=== PATIENT | female | born 1990 | race Two or more races ===

== ENCOUNTER 2016-12-09 12:45 | Inpatient (IN) | payer SELFPAY ==
[2016-12-09] VITALS (12 sets, daily range): BP systolic 87–100; BP diastolic 50–77
[~2016-12-09] VITALS: Ht 157.5 cm; Wt 55.3 kg
[~2016-12-09 12:45] MED LIST: IBUP-1060 PO
[2016-12-09 12:58] LABS: POTASSIUM ISTAT 4.2 mmol/L (3.5-5.0)
[2016-12-09 12:59] LABS: BASO # 0.1 x10^3/uL (0.0-0.2); BASO % 0 % (0-3); EOS % 0 % (0-3); HEMATOCRIT 28.1 % (36.0-47.0); HEMOGLOBIN 9.2 g/dL (12.0-15.5); LYMPH # 2.1 x10^3/uL (1.0-4.8); LYMPH % 11 % (24-48); MEAN CORPUSCULAR HEMOGLOBIN 29 pg (25-35); MEAN CORPUSCULAR HGB CONC 33 g/dL (31-37); MEAN CORPUSCULAR VOLUME 89 fL (79-100); MONO % 3 % (0-9); NEUT % 85 % (31-73); PLATELET COUNT 177 x10^3/uL (140-400); RED BLOOD COUNT 3.16 x10^6/uL (3.50-5.40); RED CELL DISTRIBUTION WIDTH 15.7 % (11.5-14.5); WHITE BLOOD COUNT 18.5 x10^3/uL (4.0-11.0)
[2016-12-09] MEDS ORDERED: IV NORMAL SALINE 1000ML BAG 1,000 ML IV ONE (13:00)
--- NOTE | 2016-12-09 13:03 | PHYS DOC ---
Adult General Chief Complaint Chief Complaint: VAGINAL BLEEDING HPI HPI Patient is a 26 year old female who presents with lightheadedness dizziness, abdominal pain with vaginal bleeding. She states she is having vaginal bleeding this morning and passed "something large out of her vagina" when using the bathroom. She presents to ER via her vehicle and had a near syncopal episode and was pale. She is alert and interactive at this time. She complains of abdominal pain that's severe in nature. She states she's had a history in the past of sexual transmitted infection. She is partially 13 months. Eyes any past surgical or allergies any medicines. States she feels lightheaded and has some shortness of breath. Review of Systems Review of Systems Constitutional: Denies fever or chills [] Eyes: Denies change in visual acuity, redness, or eye pain [] HENT: Denies nasal congestion or sore throat [] Respiratory: Denies cough or shortness of breath [] Cardiovascular: No additional information not addressed in HPI [] GI: Positive for abdominal pain, Deniesnausea, vomiting, bloody stools or diarrhea [] : Denies dysuria or hematuria [] Musculoskeletal: Denies back pain or joint pain [] Integument: Denies rash or skin lesions [] Neurologic: Denies headache, focal weakness or sensory changes [] Endocrine: Denies polyuria or polydipsia [] Current Medications Current Medications Current Medications Medications (Trade) Dose Ordered Sig/[facility] Start Time Stop Time Status Last Admin Dose Admin Sodium Chloride 1,000 ml @ 1,000 mls/hr 1X ONCE 12/09/16 13:00 12/09/16 13:59 DC 12/09/16 12:45 1,000 MLS/HR Allergies Allergies Physical Exam Physical Exam Constitutional: Well developed, well nourished, no acute distress, non-toxic appearance. [] HENT: Normocephalic, atraumatic, bilateral external ears normal, oropharynx moist, no oral exudates, nose normal. [] Eyes: PERRLA, EOMI, conjunctiva normal, no discharge. [] Neck: Normal range of motion, no tenderness, supple, no stridor. [] Cardiovascular:Heart rate regular rhythm, no murmur [] Lungs & Thorax: Bilateral breath sounds clear to auscultation [] Abdomen/ pelvic exam: Bowel sounds normal, soft, tender to palpation over the suprapubic area, no masses, no pulsatile masses. Large quantity of blood in the vault. Skin: Warm, dry, no erythema, no rash. [] Back: No tenderness, no CVA tenderness. [] Extremities: No tenderness, no cyanosis, no clubbing, ROM intact, no edema. [] Neurologic: Alert and oriented X 3, normal motor function, normal sensory function, no focal deficits noted. [] Psychologic: Affect normal, judgement normal, mood normal. [] Current Patient Data Vital Signs Vital Signs Date Time Temp Pulse Resp B/P (MAP) Pulse Ox O2 Delivery O2 Flow Rate FiO2 12/09/16 13:27 106 85/62 (70) 100 12/09/16 12:55 Room Air 12/09/16 12:45 98.3 16 98.3 Lab Values Laboratory Tests Test 12/09/16 12:45 12/09/16 12:47 12/09/16 12:52 12/09/16 12:55 White Blood Count 18.5 x10^3/uL (4.0-11.0) H Red Blood Count 3.16 x10^6/uL (3.50-5.40) L Hemoglobin 9.2 g/dL (12.0-15.5) L Hematocrit 28.1 % (36.0-47.0) L Mean Corpuscular Volume 89 fL (79-100) Mean Corpuscular Hemoglobin 29 pg (25-35) Mean Corpuscular Hemoglobin Concent 33 g/dL (31-37) Red Cell Distribution Width 15.7 % (11.5-14.5) H Platelet Count 177 x10^3/uL (140-400) Neutrophils (%) (Auto) 85 % (31-73) H Lymphocytes (%) (Auto) 11 % (24-48) L Monocytes (%) (Auto) 3 % (0-9) Eosinophils (%) (Auto) 0 % (0-3) Basophils (%) (Auto) 0 % (0-3) Neutrophils # (Auto) 15.7 x10^3uL (1.8-7.7) H Lymphocytes # (Auto) 2.1 x10^3/uL (1.0-4.8) Monocytes # (Auto) 0.6 x10^3/uL (0.0-1.1) Eosinophils # (Auto) 0.0 x10^3/uL (0.0-0.7) Basophils # (Auto) 0.1 x10^3/uL (0.0-0.2) Segmented Neutrophils % 88 % (35-66) H Lymphocytes % 10 % (24-48) L Monocytes % 2 % (0-10) Platelet Estimate Adequate (ADEQUATE) Hypochromasia Slight Sodium Level 136 mmol/L (136-145) Potassium Level 3.4 mmol/L (3.5-5.1) L Chloride Level 102 mmol/L (98-107) Carbon Dioxide Level 22 mmol/L (21-32) Anion Gap 12 (6-14) 19 mmol/L (6-14) H Blood Urea Nitrogen 14 mg/dL (7-20) Creatinine 0.8 mg/dL (0.6-1.0) Estimated GFR (Cockcroft-Gault) 87.4 BUN/Creatinine Ratio 18 (6-20) Glucose Level 142 mg/dL (70-99) H 134 mg/dL (70-99) H Lactic Acid Level 2.3 mmol/L (0.4-2.0) H Calcium Level 8.2 mg/dL (8.5-10.1) L Total Bilirubin 0.3 mg/dL (0.2-1.0) Aspartate Amino Transferase (AST) 15 U/L (15-37) Alanine Aminotransferase (ALT) 16 U/L (14-59) Alkaline Phosphatase 51 U/L (46-116) Total Protein 6.2 g/dL (6.4-8.2) L Albumin 2.6 g/dL (3.4-5.0) L Albumin/Globulin Ratio 0.7 (1.0-1.7) L Urine Collection Type U cath Urine Color Sapna Urine Clarity Cloudy Urine pH 5.5 Urine Specific [place] >=1.030 Urine Protein 30 mg/dL (NEG-TRACE) Urine Glucose (UA) Negative mg/dL (NEG) Urine Ketones (Stick) 15 mg/dL (NEG) Urine Blood Negative (NEG) Urine Nitrite Negative (NEG) Urine Bilirubin Negative (NEG) Urine Urobilinogen Dipstick 0.2 mg/dL (0.2 mg/dL) Urine Leukocyte Esterase Negative (NEG) Urine RBC 1-2 /HPF (0-2) Urine WBC 1-4 /HPF (0-4) Urine Squamous Epithelial Cells Few /LPF Urine Bacteria Few /HPF (0-FEW) Urine Hyaline Casts Few /HPF Urine Mucus Mod /LPF POC Urine HCG, Qualitative Hcg positive (Negative) POC Hemoglobin 9.2 g/dL (12-15) L POC Hematocrit 27 % (36-40) L POC Sodium 136 mmol/L (135-145) POC Potassium 4.2 mmol/L (3.5-5.0) POC Chloride 102 mmol/L (98-110) POC Total CO2 20 mmol/L (23-32) L POC Blood Urea Nitrogen 16 mg/dL (8-26) POC Creatinine 0.6 mg/dL (0.5-1.4) POC Ionized Calcium (Alcira) 1.15 mmol/L (1.13-1.32) Laboratory Tests 12/09/16 12:45 Laboratory Tests 12/09/16 12:45 12/09/16 12:55 EKG EKG [] Radiology/Procedures Radiology/Procedures [facility] [address] [place] [address] IMAGING REPORT Signed PATIENT: MARTIN SALINAS ACCOUNT: [id number] : 1990 LOCATION: ER AGE: 26 SEX: F EXAM STATUS: REG ER ORD. PHYSICIAN: LASHAWN ISRAEL MD REASON: vaginal bleeding with pain PROCEDURE: PELVIS COMPLETE Pelvic ultrasound, 12/09/2016: History: Positive test, bleeding passing material The uterus measures 18 x 9 x 7 cm. There is heterogeneous thickening of the central uterine echo complex which in the sagittal plane measures 4.8 cm in AP dimension. No definite color flow is seen within this material in the central uterine cavity. No intrauterine gestational sac or fetus is evident. The central uterine contents extend into the lower uterine segment and probably the cervical canal. The ovaries were not visualized. No adnexal mass is seen. No free fluid is evident in the pelvis. IMPRESSION: Uterine enlargement with a large amount of complex material in the central uterine cavity compatible with blood products and/or retained products of conception. Gestational peripheral blastic disease is less likely. DICTATED and SIGNED BY: PATY DELANEY MD DATE: 12/09/16 1344 CC: LASHAWN ISRAEL MD; NO PCP ~ Impressions: Vaginal bleeding Course & Med Decision Making Course & Med Decision Making Pertinent Labs and Imaging studies reviewed. (See chart for details) She arrived pale and decreased responsiveness. She is bleeding vaginally and was hypotensive and tachycardic. She was fluid resuscitated with 1 L of normal saline. She was typed and screened and one unit of blood has been ordered to be given. Spoke with Dr. Villegas regarding patient's vitals and physical exam findings. Ultrasound was performed and I was told by the tech that she has a large uterus is likely has a placenta or other products in it. I spoke with Dr. Rhodes again and told him about these findings and her vitals. Interim orders have been written and she is ready to be transferred to the OR. One unit of blood has been ordered for her. Critical care time: 45 minutes of critical care time was used on this patient excluding procedures. Dragon Disclaimer Dragon Disclaimer This electronic medical record was generated, in whole or in part, using a voice recognition dictation system. Departure Departure Impression: Primary Impression: Vagina bleeding Disposition: ADMITTED INPATIENT Admitting Physician: Other Condition: STABLE Referrals: NO PCP (PCP) LASHAWN ISRAEL MD Dec 09, 2016 13:03
[2016-12-09 13:08] LABS: BILIRUBIN,URINE NEGATIVE (NEG); GLUCOSE,URINE NEGATIVE (NEG); NITRITE,URINE NEGATIVE (NEG); PH,URINE 5.5; PROTEIN,URINE 30 mg/dL (NEG-TRACE); UROBILINOGEN,URINE 0.2 mg/dL (0.2 mg/dL)
[2016-12-09 13:16] LABS: CALCIUM 8.2 mg/dL (8.5-10.1); CREATININE 0.8 mg/dL (0.6-1.0); GFR 87.4; POTASSIUM 3.4 mmol/L (3.5-5.1)
[2016-12-09 13:20] LABS: BACTERIA,URINE FEW /HPF (0-FEW)
[2016-12-09 13:21] LABS: SQUAMOUS EPITHELIAL CELL,UR FEW /LPF
[2016-12-09 13:24] LABS: ALBUMIN 2.6 g/dL (3.4-5.0); ALBUMIN/GLOBULIN RATIO 0.7 (1.0-1.7); TOTAL BILIRUBIN 0.3 mg/dL (0.2-1.0); TOTAL PROTEIN 6.2 g/dL (6.4-8.2)
[2016-12-09] MEDS ORDERED: OXYTOCIN 10 UNIT/ML VIAL. ONE ×2 (13:50→14:40)
[2016-12-09] MEDS ORDERED: LIDOCAINE 2% PF Vial for OR 5 ML VIAL. ONE (13:55)
[2016-12-09] MEDS ORDERED: SUCCINYLCHOLINE 200 MG/10 ML VIAL. ONE (13:55)
[2016-12-09] MEDS ORDERED: DEXAMETHASONE SOD PHOS 20 MG/5 ML VIAL. ONE (13:55)
[2016-12-09] MEDS ORDERED: fentaNYL PF VIAL 100 MCG/2 ML VIAL ONE (13:55)
[2016-12-09] MEDS ORDERED: ONDANSETRON PF 4 MG/2 ML VIAL. ONE (13:55)
[2016-12-09] MEDS ORDERED: PROPOFOL 20 ML IV ONE (13:55)
--- NOTE | 2016-12-09 13:55 | RAD ---
Pelvic ultrasound, 12/09/2016: History: Positive test, bleeding passing material The uterus measures 18 x 9 x 7 cm. There is heterogeneous thickening of the central uterine echo complex which in the sagittal plane measures 4.8 cm in AP dimension. No definite color flow is seen within this material in the central uterine cavity. No intrauterine gestational sac or fetus is evident. The central uterine contents extend into the lower uterine segment and probably the cervical canal. The ovaries were not visualized. No adnexal mass is seen. No free fluid is evident in the pelvis. IMPRESSION: Uterine enlargement with a large amount of complex material in the central uterine cavity compatible with blood products and/or retained products of conception. Gestational peripheral blastic disease is less likely.
[2016-12-09] MEDS ORDERED: VASOPRESSIN 20 UNIT/ML VIAL. ONE (13:56)
[2016-12-09] MEDS ORDERED: IV RINGERS,LACTATED 1000ML 1,000 ML IV SCH (14:02)
[2016-12-09] MEDS ORDERED: MIDAZOLAM HCL/PF 2 MG/2 ML VIAL. ONE (14:02)
[2016-12-09] MEDS ORDERED: fentaNYL PF VIAL 100 MCG/2 ML VIAL IV PRN ×2 (14:15)
[2016-12-09] MEDS ORDERED: LIDOCAINE 1% 1 ML SYRINGE. ID PRN (14:15)
[2016-12-09] MEDS ORDERED: ONDANSETRON PF 4 MG/2 ML VIAL. IV PRN ×2 (14:15→15:15)
[2016-12-09] MEDS ORDERED: MORPHINE SULFATE 2 MG/ML DISP.SYRIN. IV PRN (14:15)
[2016-12-09] MEDS ORDERED: HYDROmorphone 2 MG/ML VIAL IV PRN (14:15)
[2016-12-09] MEDS ORDERED: PROCHLORPERAZINE 10 MG/2 ML VIAL. IV PRN ×2 (14:15→15:15)
[2016-12-09 14:33] LABS: PLT ESTIMATE ADEQUATE (ADEQUATE)
[2016-12-09 14:34] LABS: HYPOCHROMIA SLIGHT
[2016-12-09] MEDS ORDERED: PHENYLEPHRINE in 0.9% NACL PF 1 MG/10 ML DISP.SYRIN. IV ONE (14:40)
[2016-12-09] MEDS: GABAPENTIN 300 MG CAPSULE. PO SCH ×2 (15:00→22:00)
[2016-12-09] MEDS: DOXYCYCLINE HYCLATE 100 MG TABLET PO SCH (15:00)
--- NOTE | 2016-12-09 15:01 | PDOC ---
BRIEF OPERATIVE NOTE Pre-Op Diagnosis Incomplete SAB Post-Op Diagnosis Same Procedure Performed Suction D&C Surgeon Dr. Villegas Anesthesia Type: General Blood Loss 300 ml Specimens Obtained placenta and blood products Findings placenta 16 wks size; no parts Complications none ROBERTO VILLEGAS Jr, MD Dec 09, 2016 15:01
[2016-12-09] MEDS ORDERED: SEVOFLURANE 31 TO 60 MINUTES. IH ONE (15:07)
[2016-12-09] MEDS ORDERED: SEVOFLURANE 61 TO 120 MINUTES. IH ONE (15:07)
[2016-12-09] MEDS ORDERED: diphenhydrAMINE HCL 25 MG CAPSULE PO PRN (15:15)
[2016-12-09] MEDS ORDERED: CALCIUM CARBONATE 500 MG TAB.CHEW PO PRN (15:15)
[2016-12-09] MEDS ORDERED: DEXTROSE 50% 25 GM / 50ML DISP.SYRIN. IV PRN (15:15)
[2016-12-09] MEDS ORDERED: oxyCODONE/APAP 5/325 1 TAB TABLET PO PRN (15:15)
[2016-12-09] MEDS ORDERED: 0.9 % SODIUM CHLORIDE 10 ML DISP.SYRIN. IV PRN (15:15)
[2016-12-09] MEDS ORDERED: ZOLPIDEM 5 MG TABLET. PO PRN (15:15)
[2016-12-09] MEDS ORDERED: KETOROLAC 30 MG/ML INJ. IV PRN (15:15)
[2016-12-09] MEDS ORDERED: diphenhydrAMINE 50 MG/ML VIAL IV PRN (15:15)
[2016-12-09] MEDS ORDERED: SIMETHICONE 80 MG TAB.CHEW PO PRN (15:15)
--- NOTE | 2016-12-09 15:40 | OP ---
DATE OF SURGERY: PREOPERATIVE DIAGNOSIS: Incomplete spontaneous . POSTOPERATIVE DIAGNOSIS: Incomplete spontaneous . PROCEDURE: Suction D and C. SURGEON: Roberto Villegas MD ANESTHESIA: GETA. ESTIMATED BLOOD LOSS: 300 mL. COMPLICATIONS: None. FINDINGS: Placenta was about 16 weeks' size with no parts. COMPLICATIONS: None. SUMMARY: A 26-year-old 2, para 1 at about 12 weeks by LMP, who presented with active vaginal bleeding. She reported vaginal bleeding starting at 6:00 this morning as well as passing some tissue at home. The patient was evaluated in the emergency department and found to be hypotensive with active vaginal bleeding requiring a suction D and C emergently. The patient was counseled on risks, benefits, and expectations via the tone evaporator helper and voiced a clear understanding to proceed. DESCRIPTION OF PROCEDURE: The patient was taken to surgery suite and placed in dorsal lithotomy position, was prepped with Betadine solution and draped in sterile fashion. After adequate anesthesia, weighted speculum and curved [place] placed vaginally and anterior lip of the cervix was grasped with a single tooth tenaculum. There were partial placental pieces at the level of the cervix, which were removed, and all of blood clot by ring forceps. Placenta fragments equivalated to almost size 16-week . There were no parts palpated or extracted. A 12 curved tip suction curette was then performed using 60 inches of mercury for pressure. This was rotated circumferentially removing further products of conception as well as blood clot and debris. Sharp curettage took place until a fine gritty surface was palpated circumferentially. Suction curette was passed once again removing additional blood. The uterus was palpated firm. Due to some bleeding on the cervix from the single tooth tenaculum for retraction purposes, 2-0 Vicryl suture was placed in a [id number] manner on the anterior lip of the cervix for better hemostasis. A weighted speculum and curved [place] were removed. The patient tolerated the procedure well and was taken to recovery room in stable condition. Sponge and needle count correct x 3. ROBERTO VILLEGAS MD DR: CAITLIN/fabricio JOB#: [id number] / [id number]
[2016-12-09 15:41] LABS: HEMATOCRIT 19.5 % (36.0-47.0); HEMOGLOBIN 6.5 g/dL (12.0-15.5)
--- NOTE | 2016-12-09 15:53 | EKG ---
[facility] [address] [place] [address] Test Date: 2016-12-09 Test Time: 12:43:14 Pat Name: MARTIN SALINAS Department: Room: 343 Gender: F Global Engineering Manager: : 1990 Requested By: ROBERTO DEL VALLE Order Number: [id number] Reading MD: Measurements Intervals [place] Rate: 121 P: 66 HI: 122 QRS: 72 QRSD: 62 T: 44 QT: 318 QTc: 454 Interpretive Statements SINUS TACHYCARDIA LEFT ATRIAL ABNORMALITY QRS(T) CONTOUR ABNORMALITY CONSIDER ANTEROLATERAL MYOCARDIAL DAMAGE RI6.01 Unconfirmed report No previous ECG available for comparison
[2016-12-10 01:50] VITALS: BP 90/53
[2016-12-10] MEDS: DOXYCYCLINE HYCLATE 100 MG TABLET PO SCH ×2 (02:43→13:31)
[2016-12-10] MEDS ORDERED: IV RINGERS,LACTATED 1000ML 1,000 ML IV SCH (03:45)
[2016-12-10 03:52] LABS: BASO % 0 % (0-3); EOS % 0 % (0-3); HEMATOCRIT 23.8 % (36.0-47.0); HEMOGLOBIN 8.2 g/dL (12.0-15.5); LYMPH # 1.5 x10^3/uL (1.0-4.8); LYMPH % 14 % (24-48); MEAN CORPUSCULAR HEMOGLOBIN 30 pg (25-35); MEAN CORPUSCULAR HGB CONC 34 g/dL (31-37); MEAN CORPUSCULAR VOLUME 87 fL (79-100); MONO % 5 % (0-9); NEUT % 80 % (31-73); PLATELET COUNT 85 x10^3/uL (140-400); RED BLOOD COUNT 2.73 x10^6/uL (3.50-5.40); RED CELL DISTRIBUTION WIDTH 15.6 % (11.5-14.5); WHITE BLOOD COUNT 10.9 x10^3/uL (4.0-11.0)
[2016-12-10] MEDS: GABAPENTIN 300 MG CAPSULE. PO SCH ×2 (06:00→13:31)
[2016-12-10 06:10] VITALS: BP 86/49
[2016-12-10 06:11] VITALS: BP 77/41
[2016-12-10 06:12] VITALS: BP 86/52
[2016-12-10] MEDS ORDERED: FERROUS SULFATE 325 MG TABLET. PO SCH (08:00)
[2016-12-10 14:38] VITALS: BP 94/62
--- NOTE | 2016-12-10 16:16 | PDOC ---
SURGICAL PROGRESS NOTE Subjective Pt. feeling well. No further vaginal bleeding. Vital Signs Vital Signs Date Time Temp Pulse Resp B/P (MAP) Pulse Ox O2 Delivery O2 Flow Rate FiO2 12/10/16 14:38 98.1 88 18 94/62 (73) 97 10.0 98.1 12/10/16 06:10 Room Air I&O Intake and Output 12/11/16 07:00 Intake Total 210 ml Balance 210 ml Intake Oral 210 ml # Voids 2 General: Alert, Oriented X3, Cooperative HEENT: Atraumatic Lungs: Clear to auscultation Heart: Regular rate Abdomen: Normal bowel sounds, Soft, No tenderness, No masses Psych/Mental Status: Mental status NL Labs Laboratory Tests Test 12/09/16 12:45 12/09/16 12:47 12/09/16 12:52 12/09/16 12:55 White Blood Count 18.5 x10^3/uL (4.0-11.0) Red Blood Count 3.16 x10^6/uL (3.50-5.40) Hemoglobin 9.2 g/dL (12.0-15.5) Hematocrit 28.1 % (36.0-47.0) Mean Corpuscular Volume 89 fL (79-100) Mean Corpuscular Hemoglobin 29 pg (25-35) Mean Corpuscular Hemoglobin Concent 33 g/dL (31-37) Red Cell Distribution Width 15.7 % (11.5-14.5) Platelet Count 177 x10^3/uL (140-400) Neutrophils (%) (Auto) 85 % (31-73) Lymphocytes (%) (Auto) 11 % (24-48) Monocytes (%) (Auto) 3 % (0-9) Eosinophils (%) (Auto) 0 % (0-3) Basophils (%) (Auto) 0 % (0-3) Neutrophils # (Auto) 15.7 x10^3uL (1.8-7.7) Lymphocytes # (Auto) 2.1 x10^3/uL (1.0-4.8) Monocytes # (Auto) 0.6 x10^3/uL (0.0-1.1) Eosinophils # (Auto) 0.0 x10^3/uL (0.0-0.7) Basophils # (Auto) 0.1 x10^3/uL (0.0-0.2) Segmented Neutrophils % 88 % (35-66) Lymphocytes % 10 % (24-48) Monocytes % 2 % (0-10) Platelet Estimate Adequate (ADEQUATE) Hypochromasia Slight Sodium Level 136 mmol/L (136-145) Potassium Level 3.4 mmol/L (3.5-5.1) Chloride Level 102 mmol/L (98-107) Carbon Dioxide Level 22 mmol/L (21-32) Anion Gap 12 (6-14) 19 mmol/L (6-14) Blood Urea Nitrogen 14 mg/dL (7-20) Creatinine 0.8 mg/dL (0.6-1.0) Estimated GFR (Cockcroft-Gault) 87.4 BUN/Creatinine Ratio 18 (6-20) Glucose Level 142 mg/dL (70-99) 134 mg/dL (70-99) Lactic Acid Level 2.3 mmol/L (0.4-2.0) Calcium Level 8.2 mg/dL (8.5-10.1) Total Bilirubin 0.3 mg/dL (0.2-1.0) Aspartate Amino Transf (AST/SGOT) 15 U/L (15-37) Alanine Aminotransferase (ALT/SGPT) 16 U/L (14-59) Alkaline Phosphatase 51 U/L (46-116) Total Protein 6.2 g/dL (6.4-8.2) Albumin 2.6 g/dL (3.4-5.0) Albumin/Globulin Ratio 0.7 (1.0-1.7) Urine Collection Type U cath Urine Color Sapna Urine Clarity Cloudy Urine pH 5.5 Urine Specific [place] >=1.030 Urine Protein 30 mg/dL (NEG-TRACE) Urine Glucose (UA) Negative mg/dL (NEG) Urine Ketones (Stick) 15 mg/dL (NEG) Urine Blood Negative (NEG) Urine Nitrite Negative (NEG) Urine Bilirubin Negative (NEG) Urine Urobilinogen Dipstick 0.2 mg/dL (0.2 mg/dL) Urine Leukocyte Esterase Negative (NEG) Urine RBC 1-2 /HPF (0-2) Urine WBC 1-4 /HPF (0-4) Urine Squamous Epithelial Cells Few /LPF Urine Bacteria Few /HPF (0-FEW) Urine Hyaline Casts Few /HPF Urine Mucus Mod /LPF Bedside Urine HCG, Qualitative Hcg positive (Negative) Bedside Hemoglobin 9.2 g/dL (12-15) Bedside Hematocrit 27 % (36-40) Bedside Sodium 136 mmol/L (135-145) Bedside Potassium 4.2 mmol/L (3.5-5.0) Bedside Chloride 102 mmol/L (98-110) Bedside Total CO2 20 mmol/L (23-32) Bedside Blood Urea Nitrogen 16 mg/dL (8-26) Bedside Creatinine 0.6 mg/dL (0.5-1.4) Bedside Ionized Calcium (Alcira) 1.15 mmol/L (1.13-1.32) Test 12/09/16 15:30 12/10/16 03:45 Hemoglobin 6.5 g/dL (12.0-15.5) 8.2 g/dL (12.0-15.5) Hematocrit 19.5 % (36.0-47.0) 23.8 % (36.0-47.0) Mean Corpuscular Hemoglobin Concent 34 g/dL (31-37) 34 g/dL (31-37) White Blood Count 10.9 x10^3/uL (4.0-11.0) Red Blood Count 2.73 x10^6/uL (3.50-5.40) Mean Corpuscular Volume 87 fL (79-100) Mean Corpuscular Hemoglobin 30 pg (25-35) Red Cell Distribution Width 15.6 % (11.5-14.5) Platelet Count 85 x10^3/uL (140-400) Neutrophils (%) (Auto) 80 % (31-73) Lymphocytes (%) (Auto) 14 % (24-48) Monocytes (%) (Auto) 5 % (0-9) Eosinophils (%) (Auto) 0 % (0-3) Basophils (%) (Auto) 0 % (0-3) Neutrophils # (Auto) 8.7 x10^3uL (1.8-7.7) Lymphocytes # (Auto) 1.5 x10^3/uL (1.0-4.8) Monocytes # (Auto) 0.6 x10^3/uL (0.0-1.1) Eosinophils # (Auto) 0.0 x10^3/uL (0.0-0.7) Basophils # (Auto) 0.0 x10^3/uL (0.0-0.2) Laboratory Tests Test 12/10/16 03:45 White Blood Count 10.9 x10^3/uL (4.0-11.0) Red Blood Count 2.73 x10^6/uL (3.50-5.40) Hemoglobin 8.2 g/dL (12.0-15.5) Hematocrit 23.8 % (36.0-47.0) Mean Corpuscular Volume 87 fL (79-100) Mean Corpuscular Hemoglobin 30 pg (25-35) Mean Corpuscular Hemoglobin Concent 34 g/dL (31-37) Red Cell Distribution Width 15.6 % (11.5-14.5) Platelet Count 85 x10^3/uL (140-400) Neutrophils (%) (Auto) 80 % (31-73) Lymphocytes (%) (Auto) 14 % (24-48) Monocytes (%) (Auto) 5 % (0-9) Eosinophils (%) (Auto) 0 % (0-3) Basophils (%) (Auto) 0 % (0-3) Neutrophils # (Auto) 8.7 x10^3uL (1.8-7.7) Lymphocytes # (Auto) 1.5 x10^3/uL (1.0-4.8) Monocytes # (Auto) 0.6 x10^3/uL (0.0-1.1) Eosinophils # (Auto) 0.0 x10^3/uL (0.0-0.7) Basophils # (Auto) 0.0 x10^3/uL (0.0-0.2) Assessment/Plan POD#1 s/p Suction D&C P: D/c home. Problems: ROBERTO DEL VALLE Jr, MD Dec 10, 2016 16:16
[2016-12-10] MEDS ORDERED: OXYC-323 PO (16:17)
--- NOTE | 2016-12-10 16:17 | DISCH ---
DISCHARGE INSTRUCTIONS Condition on Discharge Condition on Discharge: Stable Activity After Discharge Activity Instructions for Disc: Activity as tolerated Lifting Instructions after Dis: No heavy lifting Driving Instructions after Dis: Do not drive today Diet after Discharge Diet after Discharge: Regular Contacting the DRBharati after DC Call your doctor for: Concerns you may have Follow-Up Follow up with: Dr. Villegas in 2 weeks. ROBERTO VILLEGAS Jr, MD Dec 10, 2016 16:17
== END 2016-12-10 17:32 | disposition home or self-care (01) | DRG 770 ==
LOC: ER 12:45 → 3 NORTH 13:30
PROVIDERS: ADMIT Obstetrics & Gynecology; ATTEND Obstetrics & Gynecology
PROC: 30233N1 Transfusion of Nonautologous Red Blood Cells into Peripheral Vein, Percutaneous Approach (ICD-10-PCS; 2016-12-09)
PROC: 10D17ZZ Extraction of Products of Conception, Retained, Via Natural or Artificial Opening (ICD-10-PCS; principal; 2016-12-09 14:00)
DX: O03.4 Incomplete spontaneous abortion without complication (principal); I95.9 Hypotension, unspecified; N85.2 Hypertrophy of uterus; Z3A.16 16 weeks gestation of pregnancy
CPT/HCPCS: 36415; 51701; 76856; 80047; 80053; 81001; 81025; 83605; 85007; 85014; 85018; 85025; 86850; 86900; 86901; 86920; 93005; 96360; J0330; J0690; J1100; J2250; J2370; J2405; J2590; J2704; J3010; J3490; J7030; J7120; P9016; 99291-25; J2001

== ENCOUNTER 2019-06-03 16:31 | Emergency (ER) | payer OTHER ==
[~2019-06-03] VITALS: Ht 162.6 cm; Wt 65.0 kg
[~2019-06-03 16:31] MED LIST changes: +OXYC1TAB15 PO
[2019-06-03 16:40] VITALS: BP 126/70
[2019-06-03] MEDS ORDERED: POLYVINYL ALCOHOL 1.4% OPHTH SOLUTION 15ML BOTTLE. OD PRN (17:00)
[2019-06-03] MEDS ORDERED: DIPH,PERTUSS(ACELL),TET VAC/PF 0.5 ML SYRINGE. VAX IM ONE (17:15)
--- NOTE | 2019-06-03 17:16 | PHYS DOC ---
Past Medical History Past Medical History: No Pertinent History Past Surgical History: No Surgical History Smoking Status: Never Smoker Alcohol Use: None Drug Use: None Adult General Chief Complaint Chief Complaint: FOREIGN BODY/EYES HPI HPI Patient is a 28 year old female who presents to the ED today complaining of accidentally getting Gain detergent to the right eye. Denies any vision loss. Reports rinsing it at home. This happened 3 PM. Review of Systems Review of Systems Constitutional: Denies fever or chills [] Eyes: Reports of to the right eye. Denies change in visual acuity,eye pain [] Musculoskeletal: Denies back pain or joint pain [] Integument: Denies rash or skin lesions [] Neurologic: Denies headache, focal weakness or sensory changes [] All other systems were reviewed and found to be within normal limits, except as documented in this note. Current Medications Current Medications Current Medications Medications (Trade) Dose Ordered Sig/Amber Start Time Stop Time Status Last Admin Dose Admin Artificial Tears (Artificial Tears) 1 drop PRN Q15MIN PRN 06/03/19 17:00 Allergies Allergies Allergies Coded Allergies Type Severity Reaction Last Updated Verified No Known Drug Allergies 12/09/16 No Physical Exam Physical Exam Constitutional: Well developed, well nourished, no acute distress, non-toxic appearance. [] Eyes: PERRLA, EOMI, conjunctiva normal, no discharge. [] Right conjunctive is slightly injected. Conjunctive is tearing. Skin: Warm, dry, no erythema, no rash. [] Back: No tenderness, no CVA tenderness. [] Extremities: No tenderness, no cyanosis, no clubbing, ROM intact, no edema. [] Neurologic: Alert and oriented X 3, normal motor function, normal sensory function, no focal deficits noted. [] Psychologic: Affect normal, judgement normal, mood normal. [] Current Patient Data Vital Signs Vital Signs Date Time Temp Pulse Resp B/P (MAP) Pulse Ox O2 Delivery O2 Flow Rate FiO2 06/03/19 16:40 98.7 83 16 126/70 (88) 100 Room Air 98.7 EKG EKG [] Radiology/Procedures Radiology/Procedures [] Course & Med Decision Making Course & Med Decision Making Pertinent Labs and Imaging studies reviewed. (See chart for details) This is a 28-year-old female patient who presents to the ED today complaining of getting Gain laundry detergent to the right eye. No vision loss. 1653 spoke with poison control, they requested we rinsed the eye for 15 minutes, give patient artificial tears let her go home. Tetanus was updated. D/c to home f/u with client service associate in 1 week. Dragon Disclaimer Dragon Disclaimer This electronic medical record was generated, in whole or in part, using a voice recognition dictation system. Departure Departure Impression: Primary Impression: Eye foreign body Disposition: HOME, SELF-CARE Condition: STABLE Referrals: NO PCP (PCP) MILVIA MCDERMOTT MD follow up in 1-2 weeks Patient Instructions: Eye - Foreign Body, [id number] Additional Instructions: You were evaluated in the emergency room after getting laundry detergent in your eye. Use the artificial tears provided every 2 hours while awake as needed. Follow-up with the provided client service associate in 1 week. Problem Qualifiers Primary Impression: Eye foreign body Encounter type: initial encounter Laterality: right Qualified Codes: T15.91XA - Foreign body on external eye, part unspecified, right eye, initial encounter AUNG MAGALLANES APRN Jun 03, 2019 17:16
== END 2019-06-03 17:30 | disposition home or self-care (01) ==
LOC: ER 16:31
DX: T15.91XA Foreign body on external eye, part unspecified, right eye, initial encounter (principal); X58.XXXA Exposure to other specified factors, initial encounter; Y93.89 Activity, other specified; Y92.89 Other specified places as the place of occurrence of the external cause; Y99.8 Other external cause status
CPT/HCPCS: 90471; 90715; 99283